=== PATIENT | male | born 1975 | race Caucasian/White ===

== ENCOUNTER → 2017-01-04 | Outpatient (CLI) | payer OTHER ==
[~2017-01-04] MED LIST: ALTACE10 MG PO; LIPITOR20 MG PO
== END | disposition home or self-care (01) ==
LOC: CDC 10:25
DX: I10 Essential (primary) hypertension (principal); S46.219D Strain of muscle, fascia and tendon of other parts of biceps, unspecified arm, subsequent encounter
CPT/HCPCS: 93000